=== PATIENT | female | born 1945 | race Caucasian/White ===

== ENCOUNTER → 2018-06-17 | Outpatient (CLI) | payer MEDICARE ==
[~2018-06-17] MED LIST: ATEN25; CALCIT950 PO; FAMO40; LEVSOD75; LEVSOD75 PO; PANT40 PO; Prinivil10 MG PO
== END | disposition home or self-care (01) ==
LOC: LAB 08:51 → LAB SHORT 08:51
DX: R53.83 Other fatigue (principal)
CPT/HCPCS: 87077; 87086; 87186

== ENCOUNTER → 2019-03-11 | Outpatient (CLI) | payer MEDICARE | END | disposition home or self-care (01) | LOC: LAB SHORT 13:50 → LAB 13:50 | DX: R30.0 Dysuria (principal) | CPT/HCPCS: 87086 ==

== ENCOUNTER 2019-05-24 19:18 | Emergency (ER) | payer MEDICARE ==
[~2019-05-24] VITALS: Ht 162.6 cm; Wt 61.2 kg
[2019-05-24 19:58] LABS: BASOPHILS ABSOLUTE AUTO 0.01 K/mm3 (0.00-0.23); BASOPHILS PERCENT AUTO 0 % (0-2); EOSINOPHILS ABSOLUTE AUTO 0.12 K/mm3 (0.00-0.68); EOSINOPHILS PERCENT AUTO 2 % (0-6); Hematocrit 45.9 % (33.0-51.0); Hemoglobin 14.8 g/dL (11.5-16.0); IMMATURE GRAN ABSOLUTE AUTO 0.01 K/mm3 (0.00-0.10); IMMATURE GRAN PERCENT AUTO 0 % (0-1); LYMPHOCYTES ABSOLUTE AUTO 1.75 K/mm3 (0.84-5.20); LYMPHOCYTES PERCENT AUTO 28 % (21-46); MONOCYTES PERCENT AUTO 10 % (4-13); Mean Corpuscular HGB 29.2 pg (26.0-34.0); Mean Corpuscular HGB Conc 32.2 g/dL (31.5-36.5); Mean Corpuscular Volume 91 fL (80-100); NEUTROPHILS ABSOLUTE AUTO 3.73 K/mm3 (1.96-9.15); NEUTROPHILS PERCENT AUTO 60 % (41-73); Platelet Count 267 K/mm3 (150-400); RDW Coefficient Variation 13.1 % (11.7-14.2); RDW Standard Deviation 43.6 fL (35.1-46.3); Red Blood Cell Count 5.07 M/mm3 (3.80-5.20); White Blood Cell Count 6.22 K/mm3 (4.00-11.30)
[2019-05-24 20:11] LABS: Source, Urine Clean Catch
[2019-05-24 20:15] LABS: Bilirubin, Urine Neg (Neg); Blood, Urine 2+ (Neg); Glucose Qualitative, Urine Neg (Neg); Ketones, Urine Neg (Neg); Leukocyte Esterase, Urine 1+ (Neg); Nitrite, Urine Neg (Neg); Protein, Urine Neg (Neg); Specific Gravity, Urine 1.005 (1.003-1.022); Urobilinogen, Urine NORM (Normal)
[2019-05-24 20:16] LABS: Alanine Aminotransfer (ALT/SGP 17 U/L (12-78); Albumin, Blood 4.3 g/dL (3.4-5.0); Albumin/Globulin Ratio 1.4 (0.8-1.8); Alk Phos 107 U/L (50-136); Anion Gap 4 mmol/L (6-16); Aspartate Aminotrans (AST/SGOT 17 U/L (12-37); Bilirubin, Total 0.4 mg/dL (0.1-1.0); Blood Urea Nitrogen 11 mg/dL (8-24); Bun/Creatinine Ratio 15.6 (12.0-20.0); CO2, Blood 31 mmol/L (21-32); Calcium, Blood 9.1 mg/dL (8.5-10.1); Chloride, Blood 107 mmol/L (98-108); Creatinine, Blood 0.71 mg/dL (0.40-1.00); Globulin, Blood 3.1 g/dL (2.2-4.0); Glomerular Filtration Rate >60 (60-); Glucose, Blood 113 mg/dL (70-99); Potassium, Blood 3.6 mmol/L (3.5-5.5); Sodium, Blood 142 mmol/L (136-145); Total Protein, Blood 7.4 g/dL (6.4-8.2)
[2019-05-24 20:16] LABS: Appearance, Urine Clear (Clear); Color, Urine Yellow (P-Yellow)
[2019-05-24 20:21] LABS: Bacteria Mod /hpf; Squamous Epithelial Cells Not Seen /hpf (Few); White Blood Cells, Urine 0-2 /hpf (0-5)
== END 2019-05-24 22:05 | disposition home or self-care (01) ==
LOC: ER 19:18
PROVIDERS: Physician Assistant
DX: R42 Dizziness and giddiness (principal); E03.9 Hypothyroidism, unspecified; Z88.8 Allergy status to other drugs, medicaments and biological substances; Z79.899 Other long term (current) drug therapy
CPT/HCPCS: 36415; 70450; 80053; 81001; 85025; 87086; 93005; 93010; 96360; 99284-25; J7030

== ENCOUNTER → 2019-06-25 | Outpatient (CLI) | payer MEDICARE ==
[2019-06-25 13:11] LABS: Source, Urine Clean Catch
[2019-06-25 13:57] LABS: Bilirubin, Urine Neg (Neg); Blood, Urine 3+ (Neg); Glucose Qualitative, Urine Neg (Neg); Ketones, Urine Neg (Neg); Leukocyte Esterase, Urine 1+ (Neg); Nitrite, Urine Neg (Neg); Protein, Urine Neg (Neg); Urobilinogen, Urine NORM (Normal)
[2019-06-25 14:20] LABS: Appearance, Urine Clear (Clear); Color, Urine Yellow (P-Yellow)
[2019-06-25 14:21] LABS: Bacteria Rare /hpf; Squamous Epithelial Cells Few /hpf (Few)
== END | disposition home or self-care (01) ==
LOC: OLS 13:06 → LAB SHORT 13:06
PROVIDERS: Urology
DX: N39.0 Urinary tract infection, site not specified (principal)
CPT/HCPCS: 81001; 87086

== ENCOUNTER → 2019-08-02 | Outpatient (CLI) | payer MEDICARE | END | disposition home or self-care (01) | LOC: LAB 18:11 → LAB SHORT 18:11 | DX: R30.0 Dysuria (principal) | CPT/HCPCS: 87086 ==

== ENCOUNTER → 2020-02-27 | Outpatient (CLI) | payer MEDICARE | END | disposition home or self-care (01) | LOC: LAB SHORT 13:21 → LAB 13:21 | DX: N39.0 Urinary tract infection, site not specified (principal) | CPT/HCPCS: 87077; 87086; 87186 ==

== ENCOUNTER 2021-08-19 22:36 | Emergency (ER) | payer MEDICARE ==
[~2021-08-19] VITALS: Ht 160 cm; Wt 57.6 kg
[2021-08-20 00:17] LABS: BASOPHILS ABSOLUTE AUTO 0.01 K/mm3 (0.00-0.23); BASOPHILS PERCENT AUTO 0 % (0-2); EOSINOPHILS ABSOLUTE AUTO 0.17 K/mm3 (0.00-0.68); EOSINOPHILS PERCENT AUTO 3 % (0-6); IMMATURE GRAN ABSOLUTE AUTO 0.01 K/mm3 (0.00-0.10); IMMATURE GRAN PERCENT AUTO 0 % (0-1); LYMPHOCYTES ABSOLUTE AUTO 2.13 K/mm3 (0.84-5.20); LYMPHOCYTES PERCENT AUTO 35 % (21-46); MONOCYTES ABSOLUTE AUTO 0.75 K/mm3 (0.16-1.47); MONOCYTES PERCENT AUTO 12 % (4-13); Mean Corpuscular HGB 29.1 pg (26.0-34.0); Mean Corpuscular HGB Conc 32.5 g/dL (31.5-36.5); Mean Corpuscular Volume 90 fL (80-100); Mean Platelet Volume 10.7 fL (9.1-12.4); NEUTROPHILS ABSOLUTE AUTO 3.07 K/mm3 (1.96-9.15); NEUTROPHILS PERCENT AUTO 50 % (41-73); Platelet Count 249 K/mm3 (150-400); RDW Standard Deviation 42.7 fL (35.1-46.3); Red Blood Cell Count 4.47 M/mm3 (3.80-5.20); White Blood Cell Count 6.14 K/mm3 (4.00-11.30)
[2021-08-20 00:29] LABS: Alanine Aminotransfer (ALT/SGP 25 U/L (12-78); Albumin, Blood 3.7 g/dL (3.4-5.0); Albumin/Globulin Ratio 1.3 (0.8-1.8); Alk Phos 90 U/L (50-136); Anion Gap 5 mmol/L (6-16); Aspartate Aminotrans (AST/SGOT 23 U/L (12-37); Bilirubin, Total 0.4 mg/dL (0.1-1.0); Blood Urea Nitrogen 10 mg/dL (8-24); Bun/Creatinine Ratio 14.6 (12.0-20.0); CO2, Blood 27 mmol/L (21-32); Calcium, Blood 8.8 mg/dL (8.5-10.1); Chloride, Blood 106 mmol/L (98-108); Creatinine, Blood 0.68 mg/dL (0.40-1.00); Globulin, Blood 2.8 g/dL (2.2-4.0); Glomerular Filtration Rate >60 (60-); Glucose, Blood 105 mg/dL (70-99); Potassium, Blood 3.8 mmol/L (3.5-5.5); Sodium, Blood 138 mmol/L (136-145); Total Protein, Blood 6.5 g/dL (6.4-8.2)
== END 2021-08-20 02:48 | disposition home or self-care (01) ==
LOC: ER 22:36
PROVIDERS: Student in an Organized Health Care Education/Training Program
DX: I10 Essential (primary) hypertension (principal); R42 Dizziness and giddiness; Z88.8 Allergy status to other drugs, medicaments and biological substances; J45.909 Unspecified asthma, uncomplicated; E03.9 Hypothyroidism, unspecified; G62.9 Polyneuropathy, unspecified
CPT/HCPCS: 36415; 80053; 83735; 85025; 93005; 93010; 99284-25; J7120

== ENCOUNTER → 2021-09-13 | Outpatient (CLI) | payer MEDICARE | LOC: LAB SHORT 01:39 → LAB 01:39 | DX: R30.0 Dysuria (principal); Z88.8 Allergy status to other drugs, medicaments and biological substances | CPT/HCPCS: 87086 ==

== ENCOUNTER 2023-07-20 15:35 | Emergency (ER) | payer MEDICARE ==
[~2023-07-20] VITALS: Ht 162.6 cm; Wt 60.3 kg
[~2023-07-20 15:35] MED LIST changes: +LATANOPROST2.5 M3; +Macrobid 100 M100 MG PO; +SYNTHROID75 MCG
[2023-07-20] MEDS ORDERED: SYNTHROID75 MCG PO (16:44)
[2023-07-20] MEDS ORDERED: AMLODIPINE BES2.5 MG PO (16:44)
[2023-07-20] MEDS ORDERED: XANAX0.25 MG PO (16:45)
[2023-07-20 18:55] VITALS: BP 167/75
== END 2023-07-20 19:01 | disposition home or self-care (01) ==
LOC: ER 15:35
DX: M54.50 Low back pain, unspecified (principal); M53.84 Other specified dorsopathies, thoracic region; G89.29 Other chronic pain; E03.9 Hypothyroidism, unspecified; J45.909 Unspecified asthma, uncomplicated; I10 Essential (primary) hypertension; Z79.890 Hormone replacement therapy; Z79.899 Other long term (current) drug therapy; Z88.8 Allergy status to other drugs, medicaments and biological substances
CPT/HCPCS: 72070; 72100; 99284-25; A9270

== ENCOUNTER → 2023-10-03 | Outpatient (CLI) | payer MEDICARE ==
[~2023-10-03] MED LIST changes: +AMLODIPINE BES2.5 MG PO; +SYNTHROID75 MCG PO; +XANAX0.25 MG PO
== END ==
LOC: LAB 17:58 → LAB SHORT 17:58
DX: L08.9 Local infection of the skin and subcutaneous tissue, unspecified (principal)
CPT/HCPCS: 87070; 87077; 87186; 87205

== ENCOUNTER 2024-10-13 10:14 | Inpatient (IN) | payer MEDICARE ==
[~2024-10-13] VITALS: Ht 160 cm; Wt 61.2 kg
[~2024-10-13 10:14] MED LIST changes: +AMLO5 PO; -AMLODIPINE BES2.5 MG PO; -LATANOPROST2.5 M3; +LATANOPROST2.5 M3 BOTHEYES
[2024-10-13 11:54] LABS: BASOPHILS ABSOLUTE AUTO 0.01 K/mm3 (0.00-0.23); BASOPHILS PERCENT AUTO 0 % (0-2); EOSINOPHILS ABSOLUTE AUTO 0.07 K/mm3 (0.00-0.68); EOSINOPHILS PERCENT AUTO 1 % (0-6); Hematocrit 38.8 % (33.0-51.0); Hemoglobin 13.1 g/dL (11.5-16.0); IMMATURE GRAN ABSOLUTE AUTO 0.01 K/mm3 (0.00-0.10); IMMATURE GRAN PERCENT AUTO 0 % (0-1); LYMPHOCYTES ABSOLUTE AUTO 1.05 K/mm3 (0.84-5.20); LYMPHOCYTES PERCENT AUTO 14 % (21-46); MONOCYTES ABSOLUTE AUTO 0.54 K/mm3 (0.16-1.47); MONOCYTES PERCENT AUTO 7 % (4-13); Mean Corpuscular HGB 30.2 pg (26.0-34.0); Mean Corpuscular HGB Conc 33.8 g/dL (31.5-36.5); Mean Corpuscular Volume 89 fL (80-100); Mean Platelet Volume 9.6 fL (9.1-12.4); NEUTROPHILS ABSOLUTE AUTO 5.75 K/mm3 (1.96-9.15); NEUTROPHILS PERCENT AUTO 78 % (41-73); Platelet Count 290 K/mm3 (150-400); RDW Coefficient Variation 13.2 % (11.7-14.2); Red Blood Cell Count 4.34 M/mm3 (3.80-5.20); White Blood Cell Count 7.43 K/mm3 (4.00-11.30)
[2024-10-13 12:13] LABS: Albumin, Blood 3.9 g/dL (3.4-5.0); Albumin/Globulin Ratio 1.3 (0.8-1.8); Bilirubin, Total 0.5 mg/dL (0.1-1.0); Bun/Creatinine Ratio 19.6 (12.0-20.0); Calcium, Blood 9.1 mg/dL (8.5-10.1); Creatinine, Blood 0.61 mg/dL (0.40-1.00); Magnesium, Blood 2.2 mg/dL (1.6-2.4); Potassium, Blood 4.1 mmol/L (3.5-5.5); Total Protein, Blood 6.9 g/dL (6.4-8.2)
[2024-10-13 12:29] LABS: International Normalized Ratio 0.97; Prothrombin Time Results 10.4 Sec (9.7-11.5)
[2024-10-13 13:27] LABS: Source, Urine Clean Catch
[2024-10-13] MEDS ORDERED: Aspirin 325 MG Tab PO ONE (13:35)
[2024-10-13 14:00] LABS: Appearance, Urine Clear (Clear); Bilirubin, Urine Neg (Neg); Blood, Urine 3+ (Neg); Glucose Qualitative, Urine Neg (Neg); Ketones, Urine Neg (Neg); Leukocyte Esterase, Urine 2+ (Neg); Nitrite, Urine Neg (Neg); Protein, Urine Neg (Neg); Urobilinogen, Urine NORM (Normal)
[2024-10-13 14:33] LABS: Color, Urine Pale Yellow (P-Yellow)
[2024-10-13 14:34] LABS: Bacteria Few /hpf; Squamous Epithelial Cells Few /hpf (Few)
[2024-10-13 14:35] LABS: Transitional Epithelial Cells Rare /hpf (0-Rare)
[2024-10-13] MEDS ORDERED: Ondansetron HCl 2 MG / ML 2ML Vial IV PRN (17:05)
[2024-10-13] MEDS ORDERED: FLU VACC TS2024-25(6MOS UP)/PF 45 MCG/0.5 ML SYRINGE IM SCH (17:05)
[2024-10-13] MEDS ORDERED: ALPRAZolam 0.25 MG Tab PO PRN (17:10)
[2024-10-13] MEDS ORDERED: Clopidogrel Bisulfate 300 MG Cap PO ONE (17:15)
[2024-10-13] MEDS ORDERED: NS 1,000 ML IV SCH (17:20)
[2024-10-13 21:23] VITALS: BP 181/157
--- NOTE | 2024-10-14 01:15 | NUR ---
BP 180/157, NO ANTIHYPERTENSIVE MEDS ON DEC. MD NOTIFIED, MD TO REVIEW CHART AND PLACE ORDERS. PT ASYMPTOMAATIC.
--- NOTE | 2024-10-14 01:25 | NUR ---
ADMIT NOTE 79 YR OLD FEMALE ADMITTED TO FLOOR FROM THE ED WITH DX OF CVA WITH RIGHT SIDE WEAKNESS. ED RN REPORTED CT NEGATIVE OF RECENT INFARCT, BUT DID SHOW PREVIOUS CVA. PT ALERT AND ORIENTED. VOICED FEELING IN ALL 4 EXT, BUT LESS IN THE RIGHT SIDE. ORIENTED TO USE OF CALL LIGHT. AGREED TO USE IT IF NEEDING OOB TO USE BATHROOM. HAS BEEN UP TO BATHROOM A FEW TIMES WITH ASSIST. BP ELEVATED. CALL LIGHT IN REACH. SEE MAR FOR DETAILS RE BP MEDS
[2024-10-14] MEDS ORDERED: AmLODIPine Besylate 5 MG Tab PO SCH (02:00)
[2024-10-14 02:05] VITALS: BP 160/108
--- NOTE | 2024-10-14 03:26 | NUR ---
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 ED RN REPORTED HAD HEAD CT AND DID NOT SEE RECENT INFARCT, BUT THAT AN "OLD" INFARCT WAS NOTED. BP ELEVATED, MD NOTIFIED AND MED ODERED/GVEN. BP WAS 181/157 AND POST MED, 160/108. THEN PT REQUESETED AND RECEIVED N ANXIETY MED. HAS BEEN RESTING QUIETLY SINCE. WILL CONT TO MONITOR. ABLE TO REPOSITION SELF IN BED WITHOUT ASSIST. CALL LIGHT IN REACH, RAILS UP X 2 AND BED IN LOW POSITION FOR SAFETY.
[2024-10-14] MEDS ORDERED: Levothyroxine Sodium 0.075 MG Tab PO SCH (06:00)
[2024-10-14 06:30] LABS: CHOL/HDL RATIO 2.5; Cholesterol 238 mg/dL (50-200); HDL Cholesterol 95 mg/dL (>39); LDL/HDL RATIO 1.4; Low Density Lipoprotein Chol 131 mg/dL (0-110); Triglycerides 59 mg/dL (30-160); Very Low Density Lipoprot Chol 11 mg/dL (6-32)
[2024-10-14 07:19] VITALS: BP 126/59
[2024-10-14] MEDS ORDERED: Aspirin 81 MG Chew PO SCH (09:00)
[2024-10-14] MEDS ORDERED: Clopidogrel Bisulfate 75 MG Tab PO SCH (09:00)
[2024-10-14] MEDS ORDERED: Atorvastatin 40 MG Tab PO SCH (09:00)
[2024-10-14] MEDS ORDERED: Enoxaparin 40 MG/0.4 ML SYR SC SCH (09:00)
[2024-10-14] MEDS ORDERED: Acetaminophen 325 MG TABLET PO PRN (11:50)
[2024-10-14] MEDS ORDERED: TraMADol HCl 50 MG Tab PO PRN (11:50)
[2024-10-14 14:55] VITALS: BP 135/73
--- NOTE | 2024-10-14 16:39 | NUR ---
SHIFT SUMMARY PT AWAKE DURING SHIFT REPORT. SITTING UP IN BED. PT ADMITTED FOR ACUTE CVA WITH R SIDE WEAKNESS. SPEECH IN TO SEE PT AT BEFORE BREAKFAST. NEW ORDERS PLACED. ECHO DONE IN RM. THERAPY HERE WHEN ECHO COMPLETE. PT THEN TAKEN DOWN FOR MRI. PT'S DAUGHTER HERE FOR SEVERAL HOURS. ROLLER COASTER DESIGNER IN TO TALK WITH PT AND DAUGHTER. DR BACH HERE TO SEE PT AND DISCUSS PLAN OF CARE. PT LATER C/O BACK PAIN AFTER MRI. NEW ORDERS OBTAINED. PT MEDICATED WITH TYLENOL, PER PT REQUEST. REPORTED IMPROVEMENT. DENIES FURTHER NEEDS AT THIS TIME. SITTING UP TALKING ON PHONE. CALL LT IN REACH.
--- NOTE | 2024-10-14 17:18 | NUR ---
PT HAS BEEN UP TO BTHRM NEEDED USING FWW AND 1P ASSIST. PT MOVES VERY SLOWLY; SEEMED IMPROVED AFTER THERAPY. MEDS WHOLE IN APPLESAUCE; TOLERATES WELL.
[2024-10-14] MEDS ORDERED: MOBIC15 MG PO (17:45)
[2024-10-14 19:24] VITALS: BP 151/69
[2024-10-15 02:55] VITALS: BP 148/64
--- NOTE | 2024-10-15 04:02 | NUR ---
SHIFT SUMMARY A&OX4, VSS, DENIES PAIN, UP W/1 ASSIST TO BR SEVERAL TIMES, SLEPT T/O THE NIGHT WAKING EASILY FOR CARES, SR ON TELE, SLEEPING AT THIS TIME, CALL LIGHT IN REACH, WILL CONT TO MONITOR UNTIL REPORT GIVEN TO ONCOMING NURSE.
[2024-10-15 08:22] VITALS: BP 135/69
[2024-10-15] MEDS ORDERED: ATOR40TA PO (11:33)
[2024-10-15] MEDS ORDERED: ASPI81CH PO (11:33)
[2024-10-15] MEDS ORDERED: CLOP75 PO (11:34)
--- NOTE | 2024-10-15 14:40 | NUR ---
PT DC'D 1425 WITH DC INSTRUCTIONS. RX FAXED TO [facility]. CALLED DR BACH FOR A WRITTEN SCRIPT FOR TRAMADOL, WAITED OVER AN HOUR AND NEVER CAME WITH SCRIPT, DAUGHTER OPTED TO LEAVE AND CALL PCP IF PT IN NEED OF MED FOR BACK NOW THAT PT NOT ADVISED TO TAKE MOBIC. ALSO INSTRUCTED TO TAKE TYLENOL PRN, JUST NO NSAIDS. DAUGHTER AND BOOGIET STATE UNDERSTANDING.
== END 2024-10-15 15:40 | disposition home health service (06) | DRG 65 ==
LOC: ER 10:14 → MEDS 10:15 → ENPENDDIS 10-15 10:59 → MEDS 10-15 15:40
PROVIDERS: Nurse Practitioner Acute Care; Student in an Organized Health Care Education/Training Program; ADMIT Student in an Organized Health Care Education/Training Program
DX: I63.9 Cerebral infarction, unspecified (principal); G81.91 Hemiplegia, unspecified affecting right dominant side; R29.702 NIHSS score 2; I10 Essential (primary) hypertension; E03.9 Hypothyroidism, unspecified; F41.9 Anxiety disorder, unspecified; J45.909 Unspecified asthma, uncomplicated; Z79.899 Other long term (current) drug therapy; G62.9 Polyneuropathy, unspecified; Z79.890 Hormone replacement therapy; Z88.2 Allergy status to sulfonamides; Z88.8 Allergy status to other drugs, medicaments and biological substances; M19.049 Primary osteoarthritis, unspecified hand; Z90.49 Acquired absence of other specified parts of digestive tract; Z90.710 Acquired absence of both cervix and uterus; Z98.890 Other specified postprocedural states
CPT/HCPCS: 36415; 70450; 70496; 70498; 70551; 80053; 80061; 81001; 83036; 83735; 84443; 84484; 85025; 85610; 92610; 93005; 93010; 93306; 97110; 97116; 97162; 97165; 97530; 97535; 99285-25; A9270; J1650; Q9967

== ENCOUNTER 2024-10-21 01:25 | Observation (INO) | payer MEDICARE ==
[~2024-10-21] VITALS: Ht 160 cm; Wt 58.7 kg
[~2024-10-21 01:25] MED LIST changes: +ASPI81CH PO; +ATOR40TA PO; +CLOP75 PO; +MOBIC15 MG PO
[2024-10-21] MEDS ORDERED: NS 1,000 ML IV SCH (02:00)
[2024-10-21 02:07] LABS: BASOPHILS PERCENT AUTO 0 % (0-2); EOSINOPHILS PERCENT AUTO 6 % (0-6); Hematocrit 38.3 % (33.0-51.0); Hemoglobin 12.8 g/dL (11.5-16.0); IMMATURE GRAN ABSOLUTE AUTO 0.02 K/mm3 (0.00-0.10); IMMATURE GRAN PERCENT AUTO 0 % (0-1); LYMPHOCYTES ABSOLUTE AUTO 1.83 K/mm3 (0.84-5.20); LYMPHOCYTES PERCENT AUTO 26 % (21-46); MONOCYTES ABSOLUTE AUTO 0.72 K/mm3 (0.16-1.47); MONOCYTES PERCENT AUTO 10 % (4-13); Mean Corpuscular HGB 30.3 pg (26.0-34.0); Mean Corpuscular HGB Conc 33.4 g/dL (31.5-36.5); Mean Corpuscular Volume 91 fL (80-100); Mean Platelet Volume 9.8 fL (9.1-12.4); NEUTROPHILS ABSOLUTE AUTO 4.07 K/mm3 (1.96-9.15); NEUTROPHILS PERCENT AUTO 58 % (41-73); Platelet Count 281 K/mm3 (150-400); RDW Standard Deviation 43.4 fL (35.1-46.3); Red Blood Cell Count 4.23 M/mm3 (3.80-5.20); White Blood Cell Count 7.04 K/mm3 (4.00-11.30)
[2024-10-21 02:15] LABS: Source, Urine Straight Cath
[2024-10-21 02:18] LABS: Bilirubin, Urine Neg (Neg); Blood, Urine 2+ (Neg); Glucose Qualitative, Urine Neg (Neg); Ketones, Urine Neg (Neg); Leukocyte Esterase, Urine Neg (Neg); Nitrite, Urine Neg (Neg); Protein, Urine Neg (Neg); Specific Gravity, Urine 1.005 (1.003-1.022); Urobilinogen, Urine NORM (Normal)
[2024-10-21 02:19] LABS: Albumin, Blood 3.9 g/dL (3.4-5.0); Albumin/Globulin Ratio 1.5 (0.8-1.8); Bilirubin, Total 0.4 mg/dL (0.1-1.0); Bun/Creatinine Ratio 17.9 (12.0-20.0); Calcium, Blood 9.1 mg/dL (8.5-10.1); Creatinine, Blood 0.78 mg/dL (0.40-1.00); Globulin, Blood 2.6 g/dL (2.2-4.0); Potassium, Blood 3.6 mmol/L (3.5-5.5); Total Protein, Blood 6.5 g/dL (6.4-8.2)
[2024-10-21 02:23] LABS: Appearance, Urine Clear (Clear); Color, Urine Pale Yellow (P-Yellow)
[2024-10-21 02:24] LABS: Bacteria Not Seen /hpf; Red Blood Cells, Urine 0-2 /hpf (0-2); Squamous Epithelial Cells Not Seen /hpf (Few); White Blood Cells, Urine Not Seen /hpf (0-5)
[2024-10-21] MEDS ORDERED: FLU VACC TS2024-25(6MOS UP)/PF 45 MCG/0.5 ML SYRINGE IM ONE (04:35)
[2024-10-21] MEDS ORDERED: TraMADol HCl 50 MG Tab PO PRN (08:25)
[2024-10-21] MEDS ORDERED: Acetaminophen 325 MG TABLET PO PRN (08:25)
[2024-10-21] MEDS ORDERED: Levothyroxine Sodium 0.075 MG Tab PO SCH (09:00)
[2024-10-21 14:52] VITALS: BP 155/66
[2024-10-21] MEDS ORDERED: QUET25 PO (15:14)
[2024-10-21] MEDS ORDERED: ALPR.25 PO (15:17)
[2024-10-21] MEDS ORDERED: CATAPRES0.1 MG PO (15:20)
[2024-10-21] MEDS ORDERED: TRAM50 PO (15:22)
--- NOTE | 2024-10-21 17:34 | NUR ---
ADMISSION/SHIFT SUMMARY PT ADMITTED FROM ER TO 328 AT APPROX 1440. ORDERS FOR BED REST WITH PT/OT TO EVALUATE. PT TRANSFERED TO UNIT BED FROM [facility] VIA SLIDE BLANKET AND STAFF ASSIST. PT DAUGHTER AT BEDSIDE. PT A/Ox4. ABLE TO MAKE NEEDS KNOWN AND ANSWER ASSESSMENT QUESTIONS APPROPRIATELY. ADMIT COMPLETED INCLUDING MEDICATION RECONCILIATION. PT REPORTS 6/10 LOWER BACK PAIN, THIS IS CHRONIC FOR PT. RN TREATED PER EMAR WITH GOOD RESULTS. PT ARRIVES TO UNIT WITH INDWELLING SANTAMARIA CATHETER THAT WAS INSERTED IN ED. PATENT AND DRAINING CLEAR YELLOW URINE. PT ORIENTED TO ROOM, BED IN LOWEST POSITION AND CALL LIGHT WITHIN REACH.
[2024-10-21 19:57] VITALS: BP 169/64
[2024-10-21] MEDS ORDERED: QUEtiapine Fumarate 25 MG Tab PO SCH (22:35)
[2024-10-21] MEDS ORDERED: LEVSOD75 PO (22:59)
[2024-10-21] MEDS ORDERED: FAMO20 PO (23:01)
[2024-10-21] MEDS ORDERED: ERGO400 PO (23:05)
--- NOTE | 2024-10-22 03:31 | NUR ---
SUPERINTENDENT MARINE SUMMARY: PT ADMITTED FOR STROKE LIKE SYMPTOMS. PT WITH HX OF RECENT CVA ON 10/14/24. PT IS DNR. HEART HEALTHY DIET. NECTAR THICK LIQUIDS. MEDS WHOLE WITH APPLESAUCE. A&O X4. MAKES NEEDS KNOWN. USES CALL LIGHT APPROPRIATELY. NO FACIAL DROOP NOTED. DENIES NUMBNESS AND TINGLING. TELEMETRY IN PLACE: SINUS SUSSY IN 50'S. ASYMPTOMATIC. SATS MAINTAINED ABOVE 90% ON ROOM AIR. SANTAMARIA IN PLACE FOR RETENTION, DRAIING YELLOW URINE. SKIN INTACT, SCATTERED BRUISING NOTED. BEDREST AT THIS TIME. TURNING Q2HRS. PIV IN L FOREARM. PT / OT EVAL PENDING. NEW ORDER FOR HOME MED: SEROQUEL 12.5MG PO AT BEDTIME. PT HAS HX OF BACK FX AT T-12 WITH CHRONIC PAIN. HEATING PAD PROVIDED. CALL LIGHT IN REACH, BED IN LOW POSITION. CALL LIGHT IN REACH. CARES CONTINUE ORDERED.
[2024-10-22 03:45] VITALS: BP 143/67
[2024-10-22 07:27] VITALS: BP 152/77
--- NOTE | 2024-10-22 08:54 | NUR ---
RN CONTACTED HOSPITALIST (MARRY) VIA PHONE AND INFORMED MED REC WAS COMPLETED YESTERDAY ON ADMISSION AND HOME MEDS WERE NOT ORDERED FOR ADMINISTRATION THIS AM. PER MARRY PT IS TO DISCHARGE TODAY, NO ORDERS GIVEN AT THIS TIME.
[2024-10-22] MEDS ORDERED: Enoxaparin 40 MG/0.4 ML SYR SC SCH (09:00)
--- NOTE | 2024-10-22 15:07 | NUR ---
DISCHARGE SUMMARY PT DISCHARGED TO HOME WITH HOME HEALTH. PT DAUGHTER AT BEDSIDE DURING DISCHARGE INSTRUCTION. INSTRUCTED PT TO FOLLOW UP WITH PCP WITHIN 2 WEEKS. INFORMED OF PLAVIX RX FAXED TO [facility]. EDUCATION PROVIDED RE PLAVIX, CONSTIPATION, AND URINARY RETENTION. SANTAMARIA REMOVED PRIOR TO DISCHARGE AND PT VOIDED, DENIES DISCOMFORT. IV REMOVED BY CNA2. PT ESCORTED TO PERSONAL VEHICLE BY CNA2, DAUGHTER PROVIDING RIDE.
== END 2024-10-22 15:00 | disposition home health service (06) ==
LOC: ER 01:25 → ERHOLD 01:26 → MEDS 01:26
PROVIDERS: Emergency Medicine; ADMIT Internal Medicine
DX: G45.9 Transient cerebral ischemic attack, unspecified (principal); I10 Essential (primary) hypertension; E03.9 Hypothyroidism, unspecified; Z66 Do not resuscitate; Z79.890 Hormone replacement therapy; Z79.899 Other long term (current) drug therapy; Z88.2 Allergy status to sulfonamides; Z88.8 Allergy status to other drugs, medicaments and biological substances; Z90.49 Acquired absence of other specified parts of digestive tract; Z90.710 Acquired absence of both cervix and uterus; Z86.73 Personal history of transient ischemic attack (TIA), and cerebral infarction without residual deficits
CPT/HCPCS: 51702; 51798; 70450; 70496; 70551; 80053; 81001; 85025; 93005; 93010; 96360-59; 97116; 97161; 97530; 99285-25; A9270; G0378; J7030; Q9967

== ENCOUNTER → 2024-11-03 | Outpatient (CLI) | payer MEDICARE ==
[~2024-11-03] MED LIST changes: +ALPR.25 PO; +CATAPRES0.1 MG PO; +ERGO400 PO; +FAMO20 PO; +QUET25 PO; +TRAM50 PO
[2024-11-03 14:04] LABS: Source, Urine Clean Catch
[2024-11-03 14:47] LABS: Appearance, Urine Clear (Clear); Bilirubin, Urine Neg (Neg); Blood, Urine 3+ (Neg); Glucose Qualitative, Urine Neg (Neg); Ketones, Urine Neg (Neg); Leukocyte Esterase, Urine 1+ (Neg); Nitrite, Urine Neg (Neg); Protein, Urine Neg (Neg); Specific Gravity, Urine 1.005 (1.003-1.022); Urobilinogen, Urine NORM (Normal)
[2024-11-03 14:53] LABS: Color, Urine Pale Yellow (P-Yellow)
[2024-11-03 14:54] LABS: Bacteria Rare /hpf; Squamous Epithelial Cells Rare /hpf (Few)
== END ==
LOC: LAB SHORT 14:02 → LAB 14:02 → LAB FUT 10-28 12:15
PROVIDERS: Internal Medicine
DX: N39.0 Urinary tract infection, site not specified (principal)
CPT/HCPCS: 81001; 87077; 87086; 87186